=== PATIENT | male | born 1965 | race Caucasian/White ===

== ENCOUNTER 2019-06-12 17:18 | Emergency (ER) | payer SELFPAY ==
[2019-06-12] MEDS ORDERED: Aspirin 81 MG Tab.Chew PO ONE (17:23)
[2019-06-12] MEDS: Nitroglycerin 0.4 MG Tab.SL SL PRN ×3 (17:27→17:43)
--- NOTE | 2019-06-12 17:27 | EDM.PDOC ---
ED HPI GENERAL MEDICAL PROBLEM - General Chief Complaint: Cardiovascular Problem Stated Complaint: CHEST PAIN Time Seen by Provider: 06/12/19 17:24 Source of Information: Reports: Patient History Limitations: Reports: No Limitations - History of Present Illness INITIAL COMMENTS - FREE TEXT/NARRATIVE: Presents with non-radiating substernal chest heaviness since 1500 today, took Prilosec and apple cider vinegar without improvement. Denies SOB. No prior h/o CAD. Mother does have a h/o CAD. Admits to smoking cigarettes, drinks alcohol occasionally, denies illicit drug use. Onset: Today Onset Date: 06/12/19 Onset Time: 15:00 Location: Reports: Chest Quality: Reports: Pressure Severity: Moderate Improves with: Reports: None Worsens with: Reports: None Chest Pain Score (Numeric/FACES): 5 - Related Data Allergies Allergy/AdvReac Type Severity Reaction Status Date / Time Tetanus Vaccines and Toxoid Allergy Muscle Verified 06/12/19 17:29 Weakness Home Meds: Home Meds Aspirin 81 mg PO DAILY 06/12/19 [History] Hydrochlorothiazide/Lisinopril [Lisinopril/HCTZ 20-12.5 MG] 1 tab PO DAILY 06/12 [History] atenoloL [Atenolol] 50 mg PO DAILY 06/12/19 [History] Past Medical History Cardiovascular History: Reports: Hypertension. Denies: CAD Social & Family History - Tobacco Use Smoking Status *Q: Current Every Day Smoker Tobacco Use Within Last Twelve Months: Cigarettes - Alcohol Use Alcohol Use History: Yes Alcohol Use Frequency: Socially - Recreational Drug Use Recreational Drug Use: No ED ROS GENERAL - Review of Systems Review Of Systems: Comprehensive ROS is negative, except as noted in HPI. ED EXAM, GENERAL - Physical Exam Exam: See Below Exam Limited By: No Limitations General Appearance: Alert, WD/WN, No Apparent Distress Nose: Normal Inspection Throat/Mouth: Normal Inspection, No Airway Compromise Head: Atraumatic, Normocephalic Neck: Full Range of Motion Respiratory/Chest: No Respiratory Distress, Lungs Clear, Normal Breath Sounds Cardiovascular: Regular Rate, Rhythm, No Murmur GI/Abdominal: Normal Bowel Sounds, Soft, Non-Tender Back Exam: Full Range of Motion Extremities: Normal Range of Motion Neurological: Alert, Normal Cognition, No Motor/Sensory Deficits Psychiatric: Normal Affect, Normal Mood Skin Exam: Warm, Dry, Intact EKG INTERPRETATION EKG Date: 06/12/19 Time: 17:20 Rhythm: NSR Rate (Beats/Min): 70 [place]: Normal ST-T: Normal QT: Normal Course - Vital Signs Last Recorded V/S: Last Vital Signs Temp 36.7 C 06/12/19 17:18 Pulse 75 06/12/19 17:18 Resp 18 06/12/19 17:18 BP 163/77 H 06/12/19 17:43 Pulse Ox 98 06/12/19 17:18 - Orders/Labs/Meds Orders: Active Orders 24 hr Category Date Time Status EKG Documentation Completion [RC] ASDIRECTED Care 06/12/19 17:23 Active Chest 1V Frontal [CR] Stat Exams 06/12/19 17:22 Taken D-DIMER QUANTITATIVE [COAG] Stat Lab 06/12/19 17:30 Stop Req INR,PT,PROTHROMBIN TIME [COAG] Stat Lab 06/12/19 17:30 Received PTT,PARTIAL THROMBOPLSTIN TIME [COAG] Stat Lab 06/12/19 17:30 Received TROPONIN I [CHEM] Routine Lab 06/12/19 20:30 Ordered EKG 12 Lead [EK] Stat Ther 06/12/19 17:22 Ordered Labs: Laboratory Tests 06/12/19 06/12/19 06/12/19 Range/Units 17:30 17:30 17:30 WBC 8.5 (4.5-12.0) X10-3/uL RBC 4.97 (4.30-5.75) x10(6)uL Hgb 16.0 (13.5-17.8) g/dL Hct 47.0 (30.0-51.3) % MCV 94.6 (80-96) fL MCH 32.2 (27.7-33.6) pg MCHC 34.0 (32.2-35.4) g/dL RDW 13.3 (11.5-15.5) % Plt Count 279 (125-369) X10(3)uL MPV 8.9 (7.4-10.4) fL Neut % (Auto) 50.4 (46-82) % Lymph % (Auto) 35.2 (13-37) % [place] % (Auto) 6.2 (4-12) % Eos % (Auto) 7 H (1.0-5.0) % Baso % (Auto) 1 (0-2) % Neut # (Auto) 4.3 (1.6-8.3) # Lymph # (Auto) 3.0 (0.6-5.0) # [place] # (Auto) 0.5 (0.0-1.3) # Eos # (Auto) 0.6 (0.0-0.8) # Baso # (Auto) 0.1 (0.0-0.2) # Sodium 137 (135-145) mmol/L Potassium 4.3 (3.5-5.3) mmol/L Chloride 100 (100-110) mmol/L Carbon Dioxide 28 (21-32) mmol/L BUN 17 (7-18) mg/dL Creatinine 1.4 H (0.70-1.30) mg/dL Est Cr Clr Drug Dosing 55.74 mL/min Estimated GFR (MDRD) 53 L (>60) BUN/Creatinine Ratio 12.1 (9-20) Glucose 99 (80-116) mg/dL Calcium 8.7 (8.6-10.2) mg/dL Total Bilirubin 0.3 (0.1-1.3) mg/dL AST 22 (5-25) IU/L ALT 32 (12-36) U/L Alkaline Phosphatase 88 (56-112) IU/L Troponin I < 0.017 L (<0.017-0.056) ng/mL Total Protein 7.7 (6.0-8.0) g/dL Albumin 4.0 (3.5-5.2) g/dL Globulin 3.7 g/dL Albumin/Globulin Ratio 1.1 Meds: Medications Discontinued Medications Generic Name Dose Route Start Last Admin Trade Name Freq PRN Reason Stop Dose Admin Aspirin 324 mg 06/12/19 17:23 06/12/19 17:31 Aspirin PO 06/12/19 17:24 162 mg ONETIME ONE Administration Al Hydroxide/Mg Hydroxide 15 0 ml 06/12/19 19:20 06/12/19 19:27 ml/ Lidocaine HCl 15 ml PO 06/12/19 19:21 Not Given ONETIME ONE Nitroglycerin 0.4 mg 06/12/19 17:23 06/12/19 17:43 Nitrostat SL 0.4 mg Q5M PRN Administration Chest Pain - Radiology Interpretation Free Text/Narrative:: CXR: No acute process. (ED provider interpretation) - Re-Assessments/Exams Free Text/Narrative Re-Assessment/Exam: 06/12/19 19:30 No improvement after NTG SL x 3. Patient did report resolution of the chest pain after belching. 06/12/19 19:47 Patient advised that preliminary lab tests and EKG were encouraging, however Troponin and EKG needed to be repeated at 2030. Patient refused further work up and care. He signed out AMA despite being advised that by doing so he risks . He understands and still left the ED against medical advice. Departure - Departure Time of Disposition: 19:51 Disposition: Against Medical Advice 07 Clinical Impression: Chest pain Qualifiers: Chest pain type: unspecified Qualified Code(s): R07.9 - Chest pain, unspecified Forms: ED Department Discharge Sepsis Event Note - Focused Exam Vital Signs: Vital Signs Temp Pulse Resp BP BP Pulse Ox 06/12/19 17:43 163/77 H 06/12/19 17:35 162/83 H 06/12/19 17:27 199/94 H 06/12/19 17:18 36.7 C 75 18 192/96 H 98 Date Exam was Performed: 06/12/19 Time Exam was Performed: 19:44 - My Orders Last 24 Hours: My Active Orders 06/12/19 17:22 Chest 1V Frontal [CR] Stat EKG 12 Lead [EK] Stat 06/12/19 17:23 EKG Documentation Completion [RC] ASDIRECTED 06/12/19 17:30 D-DIMER QUANTITATIVE [COAG] Stat INR,PT,PROTHROMBIN TIME [COAG] Stat PTT,PARTIAL THROMBOPLSTIN TIME [COAG] Stat 06/12/19 20:30 TROPONIN I [CHEM] Routine - Assessment/Plan Last 24 Hours: My Active Orders 06/12/19 17:22 Chest 1V Frontal [CR] Stat EKG 12 Lead [EK] Stat 06/12/19 17:23 EKG Documentation Completion [RC] ASDIRECTED 06/12/19 17:30 D-DIMER QUANTITATIVE [COAG] Stat INR,PT,PROTHROMBIN TIME [COAG] Stat PTT,PARTIAL THROMBOPLSTIN TIME [COAG] Stat 06/12/19 20:30 TROPONIN I [CHEM] Routine
[2019-06-12] MEDS ORDERED: Alum Hydroxide/Mag Hydroxide 15 ML, Lidocaine 2% 15 ML PO ONE ×2 (19:20)
--- NOTE | 2019-06-13 12:14 | CR ---
INDICATION: Chest pain. CHEST, ONE VIEW: Portable AP upright view of the chest 06/12/19 was compared with 11/28/08 and revealed the heart to be normal in size and shape, mediastinum was unremarkable. A definite active infiltrate or effusion was not identified. Overlying EKG leads are noted. IMPRESSION: Stable chest, no acute process. MTDD
== END 2019-06-12 19:55 | disposition left against medical advice (07) ==
LOC: FB.ED 17:18
DX: R07.89 Other chest pain (principal); I10 Essential (primary) hypertension; F17.210 Nicotine dependence, cigarettes, uncomplicated; Z79.82 Long term (current) use of aspirin; Z79.899 Other long term (current) drug therapy; Z88.7 Allergy status to serum and vaccine
CPT/HCPCS: 36415; 71045; 80053; 84484; 85025; 85610; 85730; 93005; 93010; 99284; 99285; A9270